=== PATIENT | female | born 1940 | race Caucasian/White ===

== ENCOUNTER 2017-07-21 05:06 | Inpatient (IN) ==
[2017-07-17 13:33] LABS: Appearance,Urine CLEAR; Bilirubin,Urine NEG (NEG); Color,Urine YELLOW; Glucose,Urine (UA) NEGATIVE (NEG); Leukocyte Esterase,Urine NEG /uL (NEG); Protein,Urine NEG (NEG); Specific Gravity,Urine 1.011 (1.000-1.035); Urine Blood NEG mg/dL (<0.03); Urobilinogen,Urine NEG (NEG)
[2017-07-17 14:26] LABS: Basophils # (Auto) 0 K/mcL (0.0-0.3); Basophils % (Auto) 0.5 % (0.0-2.0); Eosinophils # (Auto) 0.5 K/mcL (0.0-0.7); Eosinophils % (Auto) 5.3 % (0.0-7.0); Lymphocytes # (Auto) 1.4 K/mcL (1.5-4.8); Lymphocytes % (Auto) 14.3 % (15.5-49.0); Mean Cell Volume 86.7 fL (80.0-100.0); Mean Corpuscular HGB Conc 33.3 g/dL (31.0-36.0); Mean Corpuscular Hemoglobin 28.9 pg (26.0-34.0); Monocytes # (Auto) 0.9 K/mcL (0.1-0.9); Monocytes % (Auto) 8.9 % (1.0-12.0); Platelet Count 244 K/mcL (140-440); RBC 4.85 M/mcL (4.00-5.20); Red Cell Distribution Width 14.7 % (11.5-14.5)
[2017-07-17 14:29] LABS: Blood Urea Nitrogen 14 mg/dl (8-23)
[2017-07-21] MEDS ORDERED: PREGABALIN 75 MG CAPSULE PO SCH (06:30)
[2017-07-21] MEDS ORDERED: oxyCODONE 10 MG TAB.ER.12H PO SCH (06:30)
[2017-07-21] MEDS ORDERED: ceFAZolin 1 GM VIAL IV SCH (06:30)
[2017-07-21] MEDS ORDERED: KETAMINE 100 MG/ML ML IV ONE (07:45)
[2017-07-21] MEDS ORDERED: DEXAMETHASONE 10 MG/ML VIAL IV ONE (07:45)
[2017-07-21] MEDS ORDERED: ONDANSETRON 4 MG/2 ML VIAL IV ONE (07:45)
[2017-07-21] MEDS ORDERED: TRANEXAMIC ACID 1,000 MG/10 ML VIAL IV ONE ×2 (07:45→09:11)
[2017-07-21] MEDS ORDERED: LIDOCAINE HCL/PF 100 MG/5 ML SYRINGE IV ONE (07:45)
[2017-07-21] MEDS ORDERED: MIDAZOLAM 5 MG/5 ML VIAL IV ONE (07:45)
[2017-07-21] MEDS ORDERED: PROPOFOL 200 MG/20 ML VIAL IV ONE (07:45)
[2017-07-21] MEDS ORDERED: HEPARIN 10,000 UNIT/ML VIAL IR ONE (08:15)
--- NOTE | 2017-07-21 09:10 | Brief Operative Note ---
Date of procedure: 07/21/17 Pre-op diagnosis: L hip severe DJD Post-op diagnosis: same Procedure: Left anterior total hip arthroplasty Grafts/Implants: Yes (Depuy Actis 3 std stem, +1.5 36 delta head, 52 cup, neutral altrx liner) Anesthesia: spinal, GLMA Findings: severe arthritis Complications: none Surgeon: Lul Peralta Community Relations Manager: Les Triana Estimated blood loss (cc): 150 Specimens Removed/Pathology: none sent Condition: stable Disposition: PACU
[2017-07-21] MEDS ORDERED: FLEETS ADULT ENEMA PR PRN (09:11)
[2017-07-21] MEDS ORDERED: MAGNESIUM HYDROXIDE 30 ML ORAL.SUSP PO PRN (09:11)
[2017-07-21] MEDS ORDERED: POLYETHYLENE GLYCOL 3350 17 GM PACKET PO PRN (09:11)
[2017-07-21] MEDS ORDERED: BENZOCAINE/MENTHOL 1 LOZENGE PO PRN (09:11)
[2017-07-21] MEDS ORDERED: ONDANSETRON 4 MG/2 ML VIAL IV PRN ×2 (09:11→09:14)
[2017-07-21] MEDS ORDERED: KETOROLAC 15 MG/ML VIAL IV PRN (09:11)
[2017-07-21] MEDS ORDERED: BISACODYL 10 MG SUPP.RECT PR PRN (09:11)
[2017-07-21] MEDS ORDERED: METHOCARBAMOL 1,000 MG/10 ML VIAL IV PRN (09:14)
[2017-07-21] MEDS ORDERED: ACETAMINOPHEN 1,000 MG/100 ML BOTTLE IV ONE (09:14)
[2017-07-21] MEDS ORDERED: MEPERIDINE 25 MG/ML SYRINGE IV PRN (09:14)
[2017-07-21] MEDS ORDERED: IPRATROPIUM/ALBUTEROL 3 ML AMPUL.NEB NEB PRN (09:14)
[2017-07-21] MEDS ORDERED: fentaNYL 100 MCG/2 ML VIAL IV PRN (09:14)
[2017-07-21] MEDS ORDERED: LACTATED RINGERS 1,000 ML IV SCH (09:15)
[2017-07-21] MEDS ORDERED: AMCINONIDE TOPICAL PRN (09:30)
--- NOTE | 2017-07-21 09:56 | Operative Note ---
DATE OF OPERATION: 07/21/2017 PREOPERATIVE DIAGNOSIS: Left hip severe osteoarthritis. POSTOPERATIVE DIAGNOSIS: Left hip severe osteoarthritis. PROCEDURE PERFORMED: Left anterior total hip arthroplasty using a DePuy Actis size 3 standard offset femoral stem; a +1.5, 36 mm delta ceramic head ball; a 52 Girard cup with a neutral Altrx liner. SURGEON: Lul Peralta M.D. DESIGN DRAFTSMAN: Per Triana PA-C. ANESTHESIA: Spinal plus general. DRAINS: None. SPECIMENS: Femoral head and reamings which were discarded. BLOOD LOSS: 150 mL. COMPLICATIONS: None. POSTOPERATIVE CONDITION: Stable. INDICATIONS FOR SURGERY: This is a 76-year-old female who had progressive worsening severe left hip pain. Radiographs showed severe [id number] osteoarthritis. FINDINGS AT SURGERY: Findings at surgery showed severe arthritis. Post implantation showed good component position with mild limb lengthening. PROCEDURE IN DETAIL: The patient had been seen preoperatively and informed consent had been obtained after discussion of risks, benefits of surgery. Risks including, but not limited to, bleeding, possibly requiring transfusion; infection, possibly requiring implant removal and prolonged IV antibiotics; injury to nerves, blood vessels, and other surrounding structures; anesthetic risks; incomplete or no resolution of symptoms; leg length discrepancy; dislocation; fracture; DVT and pulmonary embolus risks; and the possibility of needing further revision surgery. She understood these risks and wished to proceed. Correct operative site was marked in preoperative holding and then patient received spinal anesthesia. She was then taken to the operating room and LMA general given. She was carefully positioned on the fracture table and the left hip and groin were carefully prepped and draped in normal sterile fashion. Time out was performed verifying patient name, operative site, and plan. Standard anterior approach incision was made with a scalpel through skin and subcutaneous tissue. Hemostasis was obtained with Bovie cautery. Blunt dissection was taken down onto the tensor fascia and this was undermined circumferentially. Irrisept was irrigated and then a ring retractor placed. Tensor fascia was incised in line with the muscle fibers and then careful blunt dissection taken medial to the muscle belly. Blunt cobra retractor was placed on the superior and inferior neck and then circumflex vessels were coagulated and cut and vastus fascia split distally. Anterior capsulectomy was performed and capsule releases taken out to the trochanters. We then used a corkscrew in the femoral head. Osteotome used under fluoro to identify our approximate neck cut trajectory and an oscillating saw was used to make our neck cut. The femoral head was removed. Acetabulum was exposed and what remained of labrum was excised circumferentially, as well as soft tissue from the floor. We started reaming directly medializing to the tear drop and then increased reamer size until a 51 got rim ream. We then opened a 52 three-hole Girard cup. Acetabulum was irrigated with Irrisept, after a minute pulse lavaged with saline, and then the cup was impacted. Initially we had about 20 to 25 degrees of anteversion in the cup with abduction angle about 40 degrees. However, inspection revealed the anterior lip of the cup was proud, so we had to increase our anteversion to about 30 to 35 degrees to get the anterior rim down flush with the anterior acetabulum. On the x-ray the cup did not quite fully seat, about a millimeter space remained, so we placed a screw in the posterior-superior quadrant and then tightened the cup down. This closed that space down nicely. A center hole cover was placed. We removed some inferior osteophyte with a curved osteotome and then a neutral Altrx liner was carefully aligned and impacted and verified to be fully seated. Traction was removed from the leg and the leg was externally rotated, extended and adducted. Capsule release was continued around the posterior neck and out to the greater trochanter. A box osteotome was used to gain canal entry. An awl was used to identify canal trajectory. Rongeur and rasp were used to lateralize. We broached up to a size 2 and then calcar planed. The +1.5 neck trial with a 36 head was placed. Hip was reduced. There was some mild tension. AP pelvis was taken and AP of the nonoperative and operative hips were overlaid. Our leg length was under 5 mm it looked like lengthened. The stem, however, appeared to be slightly undersized. We went ahead and redislocated and removed the trial. We rongeured and rasped lateral and then sunk the 2 stem significantly below our neck cut, so we went up to a size 3. This seated down about a millimeter or two below our neck cut so we calcar planed some more and opened a 3 stem. The femoral canal was irrigated with Irrisept, after a minute we pulse lavaged with saline, and then the stem was impacted. This seated on the medial calcar with the collar. A +1.5 head ball was opened. The stem was carefully cleaned and dried and then the head ball briskly impacted. The hip was reduced and final fluoro images taken and saved. We irrigated with Irrisept, after a minute pulse lavaged, and then #1 Vicryl running stitches were used for the tensor fascia. We irrigated Irrisept again prior to that closure. After that closure, we did another Irrisept irrigation, and after a minute pulse lavaged, and then 2-0 Monocryl for subcutaneous and kristopher for skin. Xeroform sterile dressing applied. The patient was awakened, extubated, and transferred to recovery in stable condition. [email or web address] Job ID: [id number] Doc ID: [id number] Lul Peralta MD
[2017-07-21] MEDS: 0.9 % SODIUM CHLORIDE 1,000 ML IV SCH ×2 (10:30→20:28)
[2017-07-21] MEDS: oxyCODONE/APAP 5/325MG TABLET PO PRN (10:33)
--- NOTE | 2017-07-21 10:41 | XRay Report ---
CLINICAL INFORMATION: Postop total hip prostheses COMPARISON: None. FINDINGS: Left total hip prostheses is anatomically aligned. Moderate degenerative change in the right hip and mild degenerative change in both SI joints noted. No osseous abnormalities. Soft tissue swelling over the surgical site seen - as expected IMPRESSION: Left total hip prostheses anatomically aligned. Moderate right hip degeneration Interpreted and Authenticated by: Darryl Dickey 07/21/17
[2017-07-21] MEDS: 0.9 % SODIUM CHLORIDE 10 ML SYRINGE IV SCH ×2 (14:26→21:59)
[2017-07-21] MEDS: ceFAZolin 1 GM VIAL IV SCH ×2 (14:26→21:38)
--- NOTE | 2017-07-21 15:48 | XRay Report ---
CLINICAL INFORMATION: Reason for Exam:LEFT ANTERIOR HIP ARTHROPLASTY COMPARISON: None. FINDINGS: Multiple digital images from the OR show left total hip prostheses in anatomic alignment no osseous abnormality IMPRESSION: Left total hip prostheses in anatomic alignment. Interpreted and Authenticated by: Darryl Dickey 07/21/17
[2017-07-21] MEDS: DOCUSATE SODIUM 100 MG CAPSULE PO SCH (20:50)
[2017-07-21] MEDS: ASPIRIN 325 MG ENTERIC COATED TABLET PO SCH (20:51)
[2017-07-21] MEDS: NITROFURANTOIN SR 100 MG CAPSULE PO SCH (20:57)
[2017-07-21] MEDS ORDERED: SIMVASTATIN 10 MG TABLET PO SCH (21:00)
[2017-07-21] MEDS ORDERED: MULTIVIT,THER IRON,CA,FA & MIN 1 TABLET PO SCH (21:00)
[2017-07-21] MEDS ORDERED: SENNOSIDES 1 TABLET PO SCH (21:00)
[2017-07-22] MEDS: oxyCODONE/APAP 5/325MG TABLET PO PRN ×2 (01:06→05:55)
[2017-07-22] MEDS: 0.9 % SODIUM CHLORIDE 10 ML SYRINGE IV SCH (05:50)
[2017-07-22] MEDS: 0.9 % SODIUM CHLORIDE 1,000 ML IV SCH (05:56)
[2017-07-22] MEDS ORDERED: LEVOTHYROXINE 100 MCG TABLET PO SCH (07:30)
--- NOTE | 2017-07-22 07:30 | Discharge Summary ---
Providers - Providers Patient information: Note initiated : 07/22/17 at 7:27 am Service Date, if different from initiated Date: [] Patient: Diamond Poe 76 y/o F admitted on 07/21/17 for Left Total Hip Arthroplasty. Chief Complaint: [] Discharge date: 07/22/17 Hospitalization Hospital course: Pt was admitted for a L total hip arthroplasty. Pt admitted on day of the procedure. Pt spent one night on the floor for IV ab, IV pain meds, and PT. Pt discharged post-op day one. will take ASA bid for DVT prophylaxis and attend out -pt PT. Discharge diagnosis: L hip osteoarthrosis Exam - Exam Clean and dry: Yes Weight bearing status: as tolerated Ortho Discharge - [facility] - Patient Instructions Diet: Regular Diet Activity: activity as tolerated, weight bearing as tolerated Total Hip Protocol: Follow activity instructions as provided by Physical Therapy. Dressing Care: May shower in 2 days - Follow Up Plan Follow Up Appointments: Lul Peralta MD [Physician] - 08/03/17 1:50 pm Disposition: Home, Self-Care Prognosis: Good Rehab Potential: Good Overall status at discharge: patient is progressing back to baseline - Orders For Discharge Prescriptions: Aspirin [Ecotrin] 325 mg PO BID #60 tab.ec HYDROcodone/APAP 10/325MG [[place] 10-325Mg] 1 - 2 tab PO Q4H PRN #75 tab PRN Reason: Pain Pending Studies Resuscitation Status Full Code Diet Regular Diet Start ThuJul 21 09 Aspirin (Ecotrin) 325 mg PO BID [facility] Last Admin: 07/21/17 20:51 Dose: 325 mg Docusate Sodium (Colace) 100 mg PO BID [facility] Last Admin: 07/21/17 20:50 Dose: 100 mg Sodium Chloride (Sodium Chloride 0.9%) 1,000 mls @ 100 mls/hr IV .Q10H [facility] Last Admin: 07/22/17 05:56 Dose: Admin: 07/21/17 20:28 Dose: 100 mls/hr Infusion: 07/21/17 20:28 Dose: 100 mls/hr Admin: 07/21/17 10:30 Dose: 100 mls/hr Iron Carb/Multivit/Pastura/Folic Acid (Multivitamin W/Minerals) 1 tab PO HS [facility] Last Admin: 07/21/17 20:50 Dose: 1 tab Ketorolac Tromethamine (Toradol) 15 mg IV Q6HP PRN PRN Reason: Pain Stop: 07/23/17 09:15 Last Admin: 07/21/17 10:32 Dose: 15 mg Morphine Sulfate (Morphine) 0 mg IV Q1HP PRN PRN Reason: PAIN LEVEL > 6 Last Admin: 07/21/17 11:14 Dose: 4 mg Nitrofurantoin Macrocrystals (Macrobid) 100 mg PO BID [facility] Last Admin: 07/21/17 20:57 Dose: 100 mg Ondansetron HCl (Zofran) 4 mg IV Q4HP PRN PRN Reason: Nausea And Vomiting Last Admin: 07/21/17 12:28 Dose: 4 mg Oxycodone/Acetaminophen (Percocet 5-325 Mg) 0 tab PO Q4HP PRN PRN Reason: PAIN LEVEL 3-6 Last Admin: 07/22/17 05:55 Dose: 1 tab Admin: 07/22/17 01:06 Dose: 1 tab Admin: 07/21/17 10:33 Dose: 2 tab Senna (Senokot) 2 tab PO HS [facility] Last Admin: 07/21/17 20:50 Dose: 2 tab Simvastatin (Zocor) 10 mg PO [facility] Last Admin: 07/21/17 20:51 Dose: 10 mg Sodium Chloride (Saline Flush) 10 ml IV Q8 [facility] Last Admin: 07/22/17 05:50 Dose: Not Given Admin: 07/21/17 21:59 Dose: Not Given Admin: 07/21/17 14:26 Dose: Not Given Shift Summary 07/22/17 04:32 Shift Summary by Isha Gallardo Patient slept well this shift. Alert and oriented. [place], uses hearing aids on bilateral ears. Pain 1-2/10 aggravated by walking. Medicated with Percocet 1 tab x1 with good effect. Ice pack applied on left hip. Patient able to feel her left leg, able to move leg and with good pedal pulse. dressing on Left hip CDI. Patient voids using BSC. Patient still wobbly when she walks. States she feels it is getting better. Voided 400 mls at 0100H with PVR of 32 mls. Ambulates with 1 person assist FWW and GB. DEVIN pumps on bilateral feet. IVF NS@100 infusing well on LFA. Uses IS at 1000 level. VSS. Initialized on 07/22/17 04:32 - END OF NOTE
[2017-07-22] MEDS ORDERED: CALCIUM W/VIT D3 500 MG TABLET PO SCH (09:00)
[2017-07-22] MEDS: ASPIRIN 325 MG ENTERIC COATED TABLET PO SCH (09:40)
[2017-07-22] MEDS: NITROFURANTOIN SR 100 MG CAPSULE PO SCH (09:52)
[2017-07-22] MEDS: DOCUSATE SODIUM 100 MG CAPSULE PO SCH (09:52)
[2017-07-22] MEDS ORDERED: PNEUMOCOCCAL 23-VAL P-SAC VAC 0.5 ML VIAL IM ONE (10:00)
[2017-07-23] MEDS ORDERED: LOSARTAN 25 MG TABLET PO SCH (09:00)
[2017-07-24] MEDS ORDERED: LIOTHYRONINE 5 MCG TABLET PO SCH (07:30)
== END 2017-07-22 10:20 | disposition home or self-care (01) | DRG 470 ==
LOC: MEDSUR 05:06
PROVIDERS: ADMIT Orthopaedic Surgery; ATTEND Orthopaedic Surgery